=== PATIENT | female | born 1930 | race Caucasian/White ===

== ENCOUNTER → 2017-06-07 | Emergency (ER) | payer OTHER ==
[~2017-06-07] VITALS: Ht 165.1 cm; Wt 64.4 kg
[~2017-06-07] MED LIST: ASPIRIN81 M1; VALSARTAN160 MG
== END | disposition home or self-care (01) ==
LOC: ER 16:14
DX: M75.51 Bursitis of right shoulder (principal); M47.897 Other spondylosis, lumbosacral region; M54.5 Low back pain; M25.551 Pain in right hip

== ENCOUNTER 2017-06-28 12:03 | Outpatient (CLI) | payer OTHER | END 2017-06-28 17:21 | disposition home or self-care (01) | LOC: MAMO-SONO 12:03 | DX: Z12.31 Encounter for screening mammogram for malignant neoplasm of breast (principal); Z87.898 Personal history of other specified conditions; Z12.39 Encounter for other screening for malignant neoplasm of breast ==

== ENCOUNTER 2017-07-15 12:44 | Outpatient (CLI) | payer OTHER | END 2017-07-15 13:00 | disposition home or self-care (01) | LOC: NUCLEAR 12:44 | DX: M81.0 Age-related osteoporosis without current pathological fracture (principal); M85.9 Disorder of bone density and structure, unspecified ==

== ENCOUNTER 2017-09-16 10:11 | Outpatient (CLI) | payer OTHER | END 2017-09-16 10:22 | disposition home or self-care (01) | LOC: LAB 10:11 | DX: E55.9 Vitamin D deficiency, unspecified (principal); M85.9 Disorder of bone density and structure, unspecified; E88.89 Other specified metabolic disorders; E21.2 Other hyperparathyroidism; M81.8 Other osteoporosis without current pathological fracture; E56.1 Deficiency of vitamin K; E83.42 Hypomagnesemia ==